=== PATIENT | male | born 2000 | race African-American/Black ===

== ENCOUNTER 2020-04-20 16:57 | Emergency (ER) | payer MEDICAID, OTHER ==
[~2020-04-20] VITALS: Ht 175.3 cm; Wt 61.8 kg
[~2020-04-20 16:57] MED LIST: ALBU17AE26; DIAZEPAM; MOTRIN; OXYCODONE; PRED5POW11; PROAIR; RANITIDINE; TYLENOL
[2020-04-20] MEDS ORDERED: ONDANSETRON HCL 4MG/2ML INJ IV ONE (18:45)
[2020-04-20 19:20] LABS: CHLORIDE 105 mEq/L (98-107)
[2020-04-20 19:29] LABS: CREATINE KINASE 149 IU/L (39-308)
[2020-04-20 19:30] VITALS: BP 118/76
== END 2020-04-20 19:39 | disposition left against medical advice (07) ==
LOC: ER 16:57
DX: R11.10 Vomiting, unspecified (principal); J45.909 Unspecified asthma, uncomplicated; F16.10 Hallucinogen abuse, uncomplicated; F10.10 Alcohol abuse, uncomplicated; Y90.9 Presence of alcohol in blood, level not specified; Z98.890 Other specified postprocedural states; Z91.018 Allergy to other foods
CPT/HCPCS: 36415; 80048; 82550; 93005; 96374; 99283

== ENCOUNTER 2024-09-11 00:16 | Emergency (ER) | payer MEDICAID, OTHER ==
[~2024-09-11] VITALS: Ht 167.6 cm; Wt 69.0 kg
[2024-09-11 00:19] VITALS: BP 126/84; PULSE 80; RESP 16; TEMP 36.4; O2SAT 99
== END 2024-09-11 04:38 | disposition left against medical advice (07) ==
LOC: ER 00:16
DX: R51.9 Headache, unspecified (principal); M54.2 Cervicalgia; J45.909 Unspecified asthma, uncomplicated; Z53.21 Procedure and treatment not carried out due to patient leaving prior to being seen by health care provider
CPT/HCPCS: A4606